=== PATIENT | female | born 1965 | race Two or more races ===

== ENCOUNTER 2020-11-06 08:00 | Outpatient (CLI) | payer OTHER | END 2020-11-06 08:30 | disposition home or self-care (01) | LOC: PPH VACUNA 08:00 | DX: Z23 Encounter for immunization (principal) ==

== ENCOUNTER 2020-12-23 09:06 | Emergency (ER) | payer OTHER ==
[~2020-12-23] VITALS: Ht 152.4 cm; Wt 127.0 kg
== END 2020-12-23 14:10 | disposition home or self-care (01) ==
LOC: ER 09:06
DX: R07.89 Other chest pain (principal)

== ENCOUNTER 2021-03-25 18:44 | Emergency (ER) | payer OTHER ==
[~2021-03-25] VITALS: Ht 152.4 cm; Wt 129.3 kg
== END 2021-03-25 22:46 | disposition home or self-care (01) ==
LOC: ER 18:44
DX: J45.998 Other asthma (principal); R06.02 Shortness of breath

== ENCOUNTER 2022-08-16 12:22 | Emergency (ER) | payer OTHER ==
[~2022-08-16] VITALS: Ht 152.4 cm; Wt 129.3 kg
[2022-08-16] MEDS ORDERED: KAPSPARGO SPRIN25 MG PO (12:33)
== END 2022-08-16 17:37 | disposition home or self-care (01) ==
LOC: ER 12:22
DX: U07.1 COVID-19 (principal); J45.909 Unspecified asthma, uncomplicated

== ENCOUNTER 2023-05-14 05:29 | Emergency (ER) | payer OTHER ==
[~2023-05-14] VITALS: Ht 152.4 cm; Wt 124.7 kg
[~2023-05-14 05:29] MED LIST: KAPSPARGO SPRIN25 MG PO
[2023-05-14 06:23] LABS: HEMATOCRIT 41.8 % (36.0-45.00); HEMOGLOBIN 13.9 g/dL (12.0-15.00); MEAN CELL VOLUME 85.1 fL (80.00-100.00); MEAN CORPUSCULAR HEMOGLOBIN 28.2 pg (27.00-32.0); MEAN CORPUSCULAR HGB CONC 33.2 g/dl (32.0-36.0); PLATELET COUNT 233 K/uL (150-450); RED BLOOD COUNT 4.92 M/uL (4.00-6.00); RED CELL DISTRIBUTION WIDTH 14.9 % (11.5-14.5)
[2023-05-14 06:45] LABS: ABG PO2 76.4 mmHg (80-100); ABG pCO2 39.6 mmHg (35-45); BASE EXCESS 1.4 mmol/l; BICARBONATE 25.7 mmol/l (23-25); SaO2 95.6 %; Tco2 26.9 mmol/l; o2 21 %
[2023-05-14 06:46] LABS: allen test SATISFACTORY; puncture site RADIAL RIGHT
[2023-05-14 06:46] LABS: ALBUMIN 3.4 gm/dL (3.4-5.0); BILIRUBIN TOTAL 0.57 mg/dL (0.3-1.2); CALCIUM 8.9 mg/dL (8.5-10.1); CREATININE SERUM 0.72 mg/dL (0.55-1.02); GFR 83.79; GLOBULINA 4.3 G/DL (2.4-3.5); POTASSIUM 3.87 mEq/L (3.5-5.1); TOTAL PROTEIN 7.7 gm/dL (6.4-8.2)
[2023-05-14 07:31] LABS: URINE APPEARANCE Cloudy; URINE BILIRRUBIN Negative (NEGATIVE); URINE BLOOD Negative; URINE COLOR Dark Yellow; URINE GLUCOSE Negative (NEGATIVE); URINE LEUKOCYTE Trace; URINE NITRATE Negative; URINE PROTEIN 30 (NEGATIVE)
[2023-05-14 07:35] LABS: URINE EPITHELIAL CELLS 132.8 uL (0.0-38.8); URINE RBC 58.9 uL (0.0-20.8)
[2023-05-14 08:24] LABS: URINE BACTERIA > 9821.5 uL (0.0-1933); URINE MUCUS MODERATE; URINE YEAST FEW /hpf
== END 2023-05-14 09:20 | disposition home or self-care (01) ==
LOC: ER 05:29
PROVIDERS: General Practice
DX: J06.9 Acute upper respiratory infection, unspecified (principal); J45.909 Unspecified asthma, uncomplicated; Z20.822 Contact with and (suspected) exposure to COVID-19